=== PATIENT | female | born 1950 | race Caucasian/White ===

== ENCOUNTER 2022-12-11 11:19 | Emergency (ER) | payer OTHER ==
[2022-12-11 11:39] VITALS: BP 139/90; PULSE 93; RESP 20; TEMP 98.5; BMI 19.5
== END 2022-12-11 11:41 | disposition home or self-care (01) ==
LOC: FER 11:19
DX: T25.022A Burn of unspecified degree of left foot, initial encounter (principal); X12.XXXA Contact with other hot fluids, initial encounter
CPT/HCPCS: 99281-25